=== PATIENT | female | born 1945 | race Two or more races ===

== ENCOUNTER 2022-05-12 09:40 | Inpatient (IN) | payer MEDICARE, OTHER ==
[~2022-05-12] VITALS: Ht 162.6 cm; Wt 68.0 kg
[2022-05-12] MEDS ORDERED: ACETAMINOPHEN 325 MG TABLET PO PRN (10:00)
[2022-05-12] MEDS ORDERED: MAGNESIUM HYDROXIDE 30 ML LIQUID UDC PO PRN (10:00)
[2022-05-12] MEDS ORDERED: MAG HYDROX/AL HYDROX/SIMETH 30 ML LIQUID UDC PO PRN (10:00)
[2022-05-12] MEDS ORDERED: BLOOD SUGAR DIAGNOSTIC 1 EACH STRIP VI ONE (10:30)
--- NOTE | 2022-05-12 10:51 | NUR ---
Admitted a case of 76 years old female from [facility] with history of Psychosis. Patient is on 5150 status. Patient arrived in a stretcher accompanied by EMT from [facility]. Initial report was given by Ila OTOOLE from interior design teacher. On admission patient was cooperative to physical assessment and vital signs. Skin body revealed no significant skin integrity breakdown. Upon face to face, patient appeared alert, oriented to person and place, confused, cooperative. Patient denies any suicidal or homicidal ideations nor any hallucinations or delusions. Patient refused to sign and consent to all admission documents. Patient was offered brief orientation to unit rules and policies and given copy of patient's rights handbook. Patient belongings were accounted and contrabands removed. Psychiatrist Keke and Medical physician Jens Huerta were informed and orders were carried out. Patient is free from pain or any discomfort. Emotional support provided. Fall and safety precautions implemented.
[2022-05-12] MEDS ORDERED: DEXTROSE 50% 50 ML DISP.SYRIN IV PRN (11:00)
[2022-05-12 11:32] VITALS: BP 142/74
[2022-05-12] MEDS: BLOOD SUGAR DIAGNOSTIC 1 EACH STRIP VI SCH ×3 (11:56→20:45)
[2022-05-12] MEDS: DIVALPROEX SPRINKLE 125 MG CAP.SPRINK PO SCH ×3 (12:15→20:45)
[2022-05-12] MEDS: OLANZAPINE 5 MG TABLET PO SCH (12:15)
[2022-05-12 15:21] VITALS: BP 92/51
--- NOTE | 2022-05-12 15:29 | NUR ---
Patient is A/O X 1 to person. Pt. is restless, agitated, anxious, combative, confused, disoriented, disorganized. Pt. tries to hit and kick staff. Pt. curses and yells and is uncooperative with nursing care. Reassurance given. Fall and safety precautions implemented.
[2022-05-12] MEDS ORDERED: LINA5TAB PO (15:45)
[2022-05-12] MEDS ORDERED: DIVA125C2 PO (15:45)
[2022-05-12] MEDS ORDERED: ATOR40TA PO (15:45)
[2022-05-12] MEDS ORDERED: INSU100V28 SQ (15:45)
[2022-05-12] MEDS ORDERED: MAG-55 PO (15:45)
[2022-05-12] MEDS ORDERED: HYDR12.55 PO (15:45)
[2022-05-12] MEDS ORDERED: GLIP5TAB13 PO (15:45)
[2022-05-12] MEDS ORDERED: LISI10TA29 PO (15:45)
[2022-05-12] MEDS ORDERED: GLIM4TAB37 PO (15:45)
[2022-05-12] MEDS ORDERED: OLAN5TAB70 PO (15:45)
[2022-05-12] MEDS ORDERED: ACET-2154 PO (15:47)
[2022-05-12] MEDS ORDERED: ACET-73 PO (15:47)
[2022-05-12] MEDS: INSULIN REGULAR, HUMAN 300 UNIT/3 ML VIAL SQ PRN (16:54)
--- NOTE | 2022-05-12 16:57 | NUR ---
Patient blood glucose is 257, 6 units of regular insulin given per sliding scale.
[2022-05-12] MEDS ORDERED: ACETAMINOPHEN 325 MG TABLET-SA PATIENTS-PAIN ONLY PO PRN (18:00)
[2022-05-12] MEDS ORDERED: ACETAMINOPHEN ES 500 MG TABLET PO PRN (18:00)
[2022-05-12 20:20] VITALS: BP 106/54
[2022-05-12] MEDS: ATORVASTATIN 40 MG TABLET PO SCH (20:45)
--- NOTE | 2022-05-13 04:49 | NUR ---
GPS: Pt.remains asleep during rounds. Got up x1 earlier and was assisted to the bathroom to urinate. Pt.is confused,disoriented and disorganized. Uncooperative, refused bedtime meds/accucheck despite numerous attempts by staff.Poor insight to her present situation/mental illness. Re-directed prn. Fall precautions observed.
[2022-05-13] MEDS: BLOOD SUGAR DIAGNOSTIC 1 EACH STRIP VI SCH ×4 (06:36→20:25)
[2022-05-13 07:11] LABS: HEMATOCRIT 36.8 % (31.2-41.9); MEAN CORPUSCULAR HEMOGLOBIN 28.7 uug (24.7-32.8); MEAN CORPUSCULAR VOLUME 85.1 fL (75.5-95.3); PLATELET COUNT (AUTO) 256 K/uL (179-408)
[2022-05-13 07:18] LABS: CREATININE 1.1 mg/dL (0.6-1.3); POTASSIUM 4.9 mmol/L (3.5-5.1)
[2022-05-13 08:02] VITALS: BP 105/53
[2022-05-13] MEDS: LINAGLIPTIN 5 MG TABLET PO SCH (09:00)
[2022-05-13] MEDS: DIVALPROEX SPRINKLE 125 MG CAP.SPRINK PO SCH ×3 (09:00→18:15)
[2022-05-13] MEDS: GLIMEPIRIDE 4 MG TABLET PO SCH (09:00)
[2022-05-13] MEDS: OLANZAPINE 5 MG TABLET PO SCH (09:00)
[2022-05-13] MEDS: LISINOPRIL 10 MG TABLET PO SCH (09:00)
[2022-05-13] MEDS: HYDROCHLOROTHIAZIDE 12.5 MG CAPSULE PO SCH (09:00)
[2022-05-13] MEDS: glipiZIDE 5 MG TABLET PO SCH ×2 (09:00→18:16)
[2022-05-13] MEDS: INSULIN REGULAR, HUMAN 300 UNIT/3 ML VIAL SQ PRN ×3 (09:52→20:26)
--- NOTE | 2022-05-13 09:53 | NUR ---
Patient blood glucose is 248, patient refused 4 units of regular insulin per sliding scale.
--- NOTE | 2022-05-13 13:00 | NUR ---
Received a patient sleeping in her room. A/O X 1 to person. Pt. is confused, disoriented, forgetful, agitated at times, combative with nursing care. Refuses medications. Pt. requires more than minimal assistance with ADL. Ambulates with assistance. Fall and safety precautions implemented.
[2022-05-13 16:00] VITALS: BP 109/59
--- NOTE | 2022-05-13 19:04 | NUR ---
GPS: PT ON CHAIR FOR SAFETY PT EASILY GETS IRRITATED AND COMBATIVE. PT QUIET TODAY. ABLE TO TAKE MEDS AND COOPERATIVE WITH CARE. BLOOD SUGAR AT 210, GIVEN 4 UNITS HUMALIN R AND TOLERATED WELL.
[2022-05-13] MEDS: ATORVASTATIN 40 MG TABLET PO SCH (20:19)
[2022-05-13] MEDS: TEMAZEPAM 7.5 MG CAPSULE PO PRN (21:06)
--- NOTE | 2022-05-13 23:49 | NUR ---
GPS: Pt.asleep during rounds. Assisted to the toilet earlier for elimination purposes. Still with episodes of being resistant/uncooperative during care. Confused,disoriented,and disorganized. Poor insight to present situation. Took bedtime meds.with little persuasion from staff. Fall precautions observed. Re-directed prn.
[2022-05-14] MEDS: BLOOD SUGAR DIAGNOSTIC 1 EACH STRIP VI SCH ×4 (06:31→20:23)
[2022-05-14 07:30] VITALS: BP 127/73
[2022-05-14] MEDS: GLIMEPIRIDE 4 MG TABLET PO SCH (09:40)
[2022-05-14] MEDS: HYDROCHLOROTHIAZIDE 12.5 MG CAPSULE PO SCH (09:40)
[2022-05-14] MEDS: LINAGLIPTIN 5 MG TABLET PO SCH (09:40)
[2022-05-14] MEDS: DIVALPROEX SPRINKLE 125 MG CAP.SPRINK PO SCH ×3 (09:40→17:16)
[2022-05-14] MEDS: LISINOPRIL 10 MG TABLET PO SCH (09:41)
[2022-05-14] MEDS: OLANZAPINE 5 MG TABLET PO SCH (09:41)
[2022-05-14] MEDS: glipiZIDE 5 MG TABLET PO SCH ×2 (09:46→17:16)
[2022-05-14] MEDS: GLUCERNA SHAKE 237 ML CAN PO SCH (10:00)
--- NOTE | 2022-05-14 10:38 | NUR ---
GPS: FILED AND FAXED 14 DAY HOLD [facility] TODAY FOR GRAVE DISABILITY AND RECEIVED BY COURT. PT GIVEN A COPY.
[2022-05-14] MEDS: INSULIN REGULAR, HUMAN 300 UNIT/3 ML VIAL SQ PRN ×3 (12:06→20:26)
[2022-05-14 15:22] VITALS: BP 106/49
--- NOTE | 2022-05-14 18:34 | NUR ---
Received a patient sleeping in her room. A/O X 1 to person. Pt. is combative with nursing care, loud, agitated. Compliant with medications. Ambulates with assistance. Reassurance given. Fall and safety precautions implemented. Blood glucose is 266 at dinner, 6 units of regular insulin given per sliding scale.
[2022-05-14 20:12] VITALS: BP 129/54
[2022-05-14] MEDS: ATORVASTATIN 40 MG TABLET PO SCH (20:26)
[2022-05-14] MEDS: TEMAZEPAM 7.5 MG CAPSULE PO PRN (21:27)
[2022-05-14] MEDS: LORAZEPAM 0.5 MG TABLET PO PRN (22:31)
[2022-05-15] MEDS: BLOOD SUGAR DIAGNOSTIC 1 EACH STRIP VI SCH ×4 (06:41→20:28)
[2022-05-15 07:30] VITALS: BP 102/46
[2022-05-15] MEDS: GLIMEPIRIDE 4 MG TABLET PO SCH (08:30)
[2022-05-15] MEDS: glipiZIDE 5 MG TABLET PO SCH ×2 (08:31→17:00)
[2022-05-15] MEDS: HYDROCHLOROTHIAZIDE 12.5 MG CAPSULE PO SCH (08:31)
[2022-05-15] MEDS: LINAGLIPTIN 5 MG TABLET PO SCH (08:31)
[2022-05-15] MEDS: OLANZAPINE 5 MG TABLET PO SCH (08:31)
[2022-05-15] MEDS: DIVALPROEX SPRINKLE 125 MG CAP.SPRINK PO SCH ×3 (08:31→17:00)
[2022-05-15] MEDS: LISINOPRIL 10 MG TABLET PO SCH (08:32)
[2022-05-15] MEDS: GLUCERNA SHAKE 237 ML CAN PO SCH (08:33)
--- NOTE | 2022-05-15 10:02 | NUR ---
VINICIUS Initial Discharge Note: Pt currently resides at [facility] located at [address] [place] [address] ([phone]). Pt has a son, Mart ([phone]). It is uncertain at this time if pt can safely return to [facility]. VINICIUS will continue to work with pt, family and MD to ensure a safe and proper discharge plan.
[2022-05-15] MEDS: INSULIN REGULAR, HUMAN 300 UNIT/3 ML VIAL SQ PRN ×2 (10:24→18:22)
--- NOTE | 2022-05-15 11:18 | NUR ---
Firearms Report: Accountant Property completed and submitted a DOJ firearms report for 5150 a danger to others and grave disability certifications. A copy of report has been placed in patient chart.
[2022-05-15] MEDS ORDERED: DEXTROSE 50% 50 ML DISP.SYRIN IV PRN (12:45)
--- NOTE | 2022-05-15 13:00 | NUR ---
TEXT DR. KEANE FOR MRI APPROVAL.
[2022-05-15 13:07] LABS: HEMATOCRIT 35.8 % (31.2-41.9); MEAN CORPUSCULAR VOLUME 86.4 fL (75.5-95.3); PLATELET COUNT (AUTO) 250 K/uL (179-408)
--- NOTE | 2022-05-15 13:10 | NUR ---
Patient refuses Depakote 250 mg as scheduled.
[2022-05-15 13:20] LABS: ALANINE AMINOTRANSFERASE 11 U/L (14-59); ALKALINE PHOSPHATASE 130 U/L (50-136); ASPARTATE AMINOTRANSFERASE 9 U/L (15-37); BILIRUBIN,TOTAL 0.6 mg/dL (0.2-1.0); CARBON DIOXIDE 28 mmol/L (21-32); CHLORIDE 103 mmol/L (98-107); CREATININE 1.6 mg/dL (0.6-1.3); PHOSPHOROUS 4.3 mg/dL (2.5-4.9); POTASSIUM 4.6 mmol/L (3.5-5.1); TOTAL PROTEIN, SERUM 7.9 g/dL (6.4-8.2); UREA NITROGEN, BLOOD 58 mg/dL (7-18)
[2022-05-15 13:23] LABS: GLUCOSE 365 mg/dL (74-106)
[2022-05-15] MEDS ORDERED: IV NS 1000 ML 1,000 ML IV ONE (14:00)
[2022-05-15] MEDS: LORAZEPAM 0.5 MG TABLET PO PRN (15:14)
--- NOTE | 2022-05-15 15:15 | NUR ---
Patient is given Ativan 0.5 mg for agitation and combativeness, will be monitor for effectiveness.
--- NOTE | 2022-05-15 15:30 | NUR ---
Patient is given IV NS 1000 ml bolus as scheduled, patient will be monitored 1:1 by nurses in the nursing station, following clinical nursing director orders.
[2022-05-15 16:00] VITALS: BP 100/38
--- NOTE | 2022-05-15 16:40 | NUR ---
I was asked to call [facility] and got report from Yun THOMPSON about this patient. The nurse informed that patient had been there for 3 months and could recognize nurses there, always making inappropriate comments, cursing, and with very strong personality. Patient was alert, oriented X 2 to person. She also stated that patient's son Mart Lopez never visited her in the facility during these 3 months, and patient did not have visitors over. Report was also taken from Activity employee Amna as well. Addendum: 05/15/22 at 1648 by MARIYA SALAS RN Facility was called at 16:40.
[2022-05-15] MEDS ORDERED: OLANZAPINE 5 MG TABLET PO SCH (17:00)
--- NOTE | 2022-05-15 18:24 | NUR ---
Patient blood glucose is 267, 12 units was given per sliding scale.
--- NOTE | 2022-05-15 18:51 | NUR ---
Patient is uncooperative with care, anxious, agitated, combative. Pt. keeps trying pulling her IV out and is getting more confused. Requires total assistance with ADL. Reassurance given. Fall and safety precautions implemented.
[2022-05-15 20:12] VITALS: BP 114/56
[2022-05-15] MEDS: ATORVASTATIN 40 MG TABLET PO SCH (20:21)
[2022-05-15] MEDS: INSULIN REGULAR, HUMAN 300 UNITS/3 ML VIAL SQ PRN (20:30)
[2022-05-15 23:39] LABS: *BILIRUBIN,URIN NEGATIVE (NEGATIVE); *KETONES,URINE NEGATIVE (NEGATIVE); *UROBILINOGEN,URINE 0.2 E.U./dl (NORMAL); LEUKOCYTE ESTERASE ,URINE 3+ (NEGATIVE); NITRITE, URINE NEGATIVE (NEGATIVE); PH,URINE >=9.0 (5.0-8.0); UGLUCOSE 1+ (NEGATIVE)
[2022-05-15 23:46] LABS: *BLOOD, URINE TRACE (NEGATIVE); *CLARITY,URINE CLOUDY (CLEAR); *COLOR,URINE STRAW (YELLOW)
[2022-05-15 23:47] LABS: BACTERIA,URINE MANY /HPF (NONE SEEN); SQUAMOUS EPITHELIAL CELL,UR FEW /HPF (NONE SEEN); WBC,URINE TNTC /HPF (0-3)
[2022-05-16] MEDS: BLOOD SUGAR DIAGNOSTIC 1 EACH STRIP VI SCH ×4 (06:35→20:10)
[2022-05-16 07:09] LABS: CREATININE 1.2 mg/dL (0.6-1.3); MAGNESIUM 1.9 mg/dL (1.8-2.4); PHOSPHOROUS 3.6 mg/dL (2.5-4.9); POTASSIUM 4.5 mmol/L (3.5-5.1)
[2022-05-16 07:30] VITALS: BP 108/60
[2022-05-16 07:32] LABS: MEAN CORPUSCULAR HEMOGLOBIN 29.3 uug (24.7-32.8); MEAN CORPUSCULAR VOLUME 85.7 fL (75.5-95.3); PLATELET COUNT (AUTO) 220 K/uL (179-408)
[2022-05-16] MEDS: LISINOPRIL 10 MG TABLET PO SCH (09:00)
[2022-05-16] MEDS: GLUCERNA SHAKE 237 ML CAN PO SCH (09:00)
[2022-05-16] MEDS ORDERED: GLIMEPIRIDE 4 MG TABLET PO SCH (09:00)
--- NOTE | 2022-05-16 10:34 | NUR ---
GPS: UTI NOTED ON PT LAB RESULT. CROWD CONTROLLER ORDERED KEFLEX 500MG Q8HRS X 5 DAYS FOR UTI.
[2022-05-16] MEDS: HYDROCHLOROTHIAZIDE 12.5 MG CAPSULE PO SCH (11:09)
[2022-05-16] MEDS: LINAGLIPTIN 5 MG TABLET PO SCH (11:09)
[2022-05-16] MEDS: glipiZIDE 5 MG TABLET PO SCH ×2 (11:09→17:13)
[2022-05-16] MEDS: DIVALPROEX SPRINKLE 125 MG CAP.SPRINK PO SCH ×3 (11:09→17:13)
[2022-05-16] MEDS: risperiDONE 0.5 MG TABLET PO SCH ×2 (11:16→20:10)
[2022-05-16] MEDS: INSULIN REGULAR, HUMAN 300 UNIT/3 ML VIAL SQ PRN ×2 (12:32→17:06)
[2022-05-16] MEDS: CEphaleXIN 500 MG CAPSULE PO SCH ×2 (13:26→21:13)
--- NOTE | 2022-05-16 13:45 | NUR ---
Gps/Account Executive Key Accounts- Compliant with routine medications, took her routine meds with no difficulty noted. Fed self ind. after set up.
--- NOTE | 2022-05-16 16:28 | NUR ---
APS: SW filed an APS report #[id number] on pt's son, Dennis ([phone]) due to pt presenting verbally aggressive and threatening via phone to this SW. Dennis stated he is admitting that he needs the SW to talk to the psychiatrist and write the letter today so he can present the letter to the bank and gain access to the patient's debit card to help pay for his rent. Dennis stated in an upset and hyperverbal tone that he needs the letter today or else he is going to be evicted at the end of the month and he has a daughter. Pt's son continued to repeat the same statement. Dennis appeared to deny the pt's current condition by asking what her diagnosis means and stating her symptoms began here after receiving medication. Dennis was apologetic, however continued to demand the letter and stated he is going to come see the pt today. This SW informed the pt's psychiatrist, Dr. Davies of the conversation and the Director, Dr. Hidalgo. Dr. Davies and Dr. Hidalgo are aware of the APS report. A copy has been placed in the patient's chart.
--- NOTE | 2022-05-16 16:29 | NUR ---
SW Family Contact: SW filed an APS report #[id number] on pt's son, Dennis ([phone]) due to pt presenting verbally aggressive and threatening via phone to this SW. Dennis stated he is admitting that he needs the SW to talk to the psychiatrist and write the letter today so he can present the letter to the bank and gain access to the patient's debit card to help pay for his rent. Dennis stated in an upset and hyperverbal tone that he needs the letter today or else he is going to be evicted at the end of the month and he has a daughter. Pt's son continued to repeat the same statement. Dennis appeared to deny the pt's current condition by asking what her diagnosis means and stating her symptoms began here after receiving medication. Dennis was apologetic, however continued to demand the letter and stated he is going to come see the pt today. This SW informed the pt's psychiatrist, Dr. Davies of the conversation and the Director, Dr. Hidalgo. Dr. Davies and Dr. Hidalgo are aware of the APS report. A copy has been placed in the patient's chart.
--- NOTE | 2022-05-16 16:36 | NUR ---
GPS: RECEIVED A CALL FROM PSYCHIATRIST RE: SON COMING TO VISIT HIS MOM AT [phone], THE PT. PER PSYCHIATRIST, TO REQUEST SECURITY PERSONNEL INSIDE THE UNIT FOR STAND BY. INFORMED (SOILA) SECURITY AT THE [facility] AND PER SECURITY, HIS BOSS IS COMING OVER TODAY.
[2022-05-16 17:18] VITALS: BP 110/70
--- NOTE | 2022-05-16 17:58 | NUR ---
GPS: SON CAME TO VISIT PT ACCOMPANIED BY SECURITY PERSONNEL. SON ASKED CASING WRINGER OPERATOR IF HE CAN MAKE A CALL TO THE BANK AND PT SPEAK TO THE STEAMSHIP AGENT TO AUTHORIZE HIM TO USE FUNDS. CASING WRINGER OPERATOR STATED THAT HE CANNOT MAKE A CALL OR TRANSACTION INSIDE THE UNIT AND WE ARE NOT AUTHORIZE TO DO THAT HERE. SON APOLOGIZED TO WHAT HAPPENED HERE YESTERDAY DURING HIS VISIT. PSYCHIATRIST AND MRI SUPERVISOR MADE AWARE.
--- NOTE | 2022-05-16 18:28 | NUR ---
Gps/Ocean Lifeguard- Son was in to visit patient. Interacting with patient in Bangladeshi .Per son patient was able to identify patient. Patient stayed up in her chair by the Nurses station while son was visiting.
[2022-05-16] MEDS: ATORVASTATIN 40 MG TABLET PO SCH (20:10)
[2022-05-16 21:08] VITALS: BP 99/48
[2022-05-16] MEDS: INSULIN REGULAR, HUMAN 300 UNITS/3 ML VIAL SQ PRN (21:12)
--- NOTE | 2022-05-16 21:13 | NUR ---
GPS: Pt.is angry,gets easily agitated,verbally abusive now when being encouraged to take her meds.and insulin. Pt.is confused,disoriented and disorganized. Constant re-direction provided but unsuccessful so far. Resistant during care also. Fall precautions observed. Will continue to monitor. Fluids encouraged but taken poorly.
[2022-05-17] MEDS: CEphaleXIN 500 MG CAPSULE PO SCH ×3 (06:00→22:06)
[2022-05-17] MEDS: BLOOD SUGAR DIAGNOSTIC 1 EACH STRIP VI SCH ×4 (06:33→20:26)
--- NOTE | 2022-05-17 06:50 | NUR ---
GPS: Pt.slept 6.15 last night. Remains confused,disoriented and easily agitated when care is being rendered. Refused atb am dose for UTI despite explanation of importance. Urine remains cloudy. Fall precautions observed.Po fluids encouraged but taken poorly. Afebrile.
[2022-05-17 07:30] VITALS: BP 112/56
--- NOTE | 2022-05-17 08:30 | NUR ---
Gps/Intellectual Property Lawyer. AntonOB to her chair for breakfast, was toileted, contienence noted, set up with her meals, compliant with routine oral meds, took meds w/o hesitancy when reviewed, but refused insulin injection , will recheck blood glucose at a later time
[2022-05-17] MEDS: LINAGLIPTIN 5 MG TABLET PO SCH (09:03)
[2022-05-17] MEDS: LISINOPRIL 10 MG TABLET PO SCH (09:03)
[2022-05-17] MEDS: glipiZIDE 5 MG TABLET PO SCH ×2 (09:04→18:05)
[2022-05-17] MEDS: risperiDONE 0.5 MG TABLET PO SCH ×3 (09:04→22:06)
[2022-05-17] MEDS: DIVALPROEX SPRINKLE 125 MG CAP.SPRINK PO SCH ×3 (09:04→18:05)
[2022-05-17] MEDS: GLUCERNA SHAKE 237 ML CAN PO SCH (09:05)
[2022-05-17] MEDS: HYDROCHLOROTHIAZIDE 12.5 MG CAPSULE PO SCH (09:07)
--- NOTE | 2022-05-17 09:27 | NUR ---
VINICIUS Discharge Update: VINICIUS spoke with Sachi at [facility] located at [address] [place], [place] [id number] ([phone]) who stated that pt is welcome back upon discharge.
[2022-05-17] MEDS: INSULIN REGULAR, HUMAN 300 UNIT/3 ML VIAL SQ PRN ×3 (11:11→17:48)
--- NOTE | 2022-05-17 12:26 | NUR ---
GPS: 14 DAY HOLD [facility] DONE. PT WILL CONTINUE ON HOLD FOR PROBABLE CAUSE OF GD. PT DID NOT ATTEND THE HEARING.
--- NOTE | 2022-05-17 13:12 | NUR ---
Gps/Heel Cementer Machine- Continued compliance with her routine medications noted when offered, reviewed with patient , agreed to take her medications . Staying up in her aby-chair , periods of short naps noted.. Calling out to make simple needs, known, was toileted as needed.
[2022-05-17 16:00] VITALS: BP 113/48
[2022-05-17] MEDS: ATORVASTATIN 40 MG TABLET PO SCH ×2 (20:27→22:06)
[2022-05-17 20:28] VITALS: BP 109/47
[2022-05-17] MEDS: INSULIN REGULAR, HUMAN 300 UNITS/3 ML VIAL SQ PRN (20:28)
--- NOTE | 2022-05-17 22:07 | NUR ---
GPS: Attempted again to offer PO meds.at bedtime and pt.finally took them with little persuasion from staff. Continues to refuse reg.insulin per sliding scale bedtime dose.
[2022-05-18] MEDS: CEphaleXIN 500 MG CAPSULE PO SCH ×3 (06:34→22:00)
[2022-05-18] MEDS: BLOOD SUGAR DIAGNOSTIC 1 EACH STRIP VI SCH ×4 (06:35→20:48)
--- NOTE | 2022-05-18 06:35 | NUR ---
GPS: Pt.compliant with her med.at this time. Blood sugar check done and registered at 145mg/dl. Walked to the bathroom with help of staff for elimination purposes. Less agitated at the moment. Re-directed prn. Reality re-orientation provided prn. Fall precautions observed.
[2022-05-18 07:30] VITALS: BP 112/58
[2022-05-18] MEDS: risperiDONE 0.5 MG TABLET PO SCH ×2 (09:18→20:42)
[2022-05-18] MEDS: glipiZIDE 5 MG TABLET PO SCH ×2 (09:18→17:55)
[2022-05-18] MEDS: LINAGLIPTIN 5 MG TABLET PO SCH (09:18)
[2022-05-18] MEDS: HYDROCHLOROTHIAZIDE 12.5 MG CAPSULE PO SCH (09:18)
[2022-05-18] MEDS: LISINOPRIL 10 MG TABLET PO SCH (09:19)
[2022-05-18] MEDS: DIVALPROEX SPRINKLE 125 MG CAP.SPRINK PO SCH ×3 (09:20→17:55)
[2022-05-18] MEDS: GLUCERNA SHAKE 237 ML CAN PO SCH (09:21)
[2022-05-18] MEDS: INSULIN REGULAR, HUMAN 300 UNIT/3 ML VIAL SQ PRN ×2 (12:06→17:42)
--- NOTE | 2022-05-18 12:57 | NUR ---
Gps/Thermal Engineer- Stayed up in her aby- chair during her lunch, ate fairly well, fed self ind. after set up. deneis any pain no discomfort noted.
[2022-05-18 16:00] VITALS: BP 102/43
--- NOTE | 2022-05-18 18:11 | NUR ---
Gps/Maintenance Mgr- Patient stayed up for dinner, Son Jens came in to visit , patient was able to identify her son, brought in black tennis shoes -1 pair, , 2 long sleeves printed blouse 1 beige blouse 3 pairs of sock , rest of her clothes was sent home, returned back to her son .
[2022-05-18 20:00] VITALS: BP 107/42
[2022-05-18] MEDS: ATORVASTATIN 40 MG TABLET PO SCH (20:42)
[2022-05-18] MEDS: INSULIN REGULAR, HUMAN 300 UNITS/3 ML VIAL SQ PRN (20:50)
[2022-05-19] MEDS: CEphaleXIN 500 MG CAPSULE PO SCH ×3 (05:50→20:46)
--- NOTE | 2022-05-19 05:59 | NUR ---
GPS: Remain calm and cooperative3 with care. refused atb last night,but compliant this morning. slept 5 hrs through the night. resting in bed comfortably.
[2022-05-19] MEDS: BLOOD SUGAR DIAGNOSTIC 1 EACH STRIP VI SCH ×5 (06:13→20:39)
[2022-05-19 08:12] VITALS: BP 118/61
[2022-05-19] MEDS: INSULIN REGULAR, HUMAN 300 UNIT/3 ML VIAL SQ PRN ×3 (08:14→16:49)
[2022-05-19] MEDS: LINAGLIPTIN 5 MG TABLET PO SCH (09:29)
[2022-05-19] MEDS: risperiDONE 0.5 MG TABLET PO SCH ×2 (09:29→20:41)
[2022-05-19] MEDS: DIVALPROEX SPRINKLE 125 MG CAP.SPRINK PO SCH ×3 (09:29→16:30)
[2022-05-19] MEDS: GLUCERNA SHAKE 237 ML CAN PO SCH (09:30)
[2022-05-19] MEDS: glipiZIDE 5 MG TABLET PO SCH ×2 (09:30→16:30)
[2022-05-19] MEDS: LISINOPRIL 10 MG TABLET PO SCH (09:30)
[2022-05-19] MEDS: HYDROCHLOROTHIAZIDE 12.5 MG CAPSULE PO SCH (09:31)
[2022-05-19 16:20] VITALS: BP 111/51
[2022-05-19] MEDS: NUTRISOURCE FIBER 4 GM PACKET PO SCH (16:31)
--- NOTE | 2022-05-19 18:26 | NUR ---
GPS NOTES; Received patient in her room sleeping, no distress noted. Responsive to name and touch. A&0x1. Compliant with medications. Patient in aby chair, close to nursing station for safety. Needs med and attended. With good appetite. Needs assistance to perform ADL's. closely monitoring observed.
[2022-05-19 20:06] VITALS: BP 117/63
[2022-05-19] MEDS: ATORVASTATIN 40 MG TABLET PO SCH (20:41)
[2022-05-19] MEDS: INSULIN REGULAR, HUMAN 300 UNITS/3 ML VIAL SQ PRN (20:49)
[2022-05-20] MEDS: BLOOD SUGAR DIAGNOSTIC 1 EACH STRIP VI SCH ×4 (06:21→20:53)
[2022-05-20] MEDS: CEphaleXIN 500 MG CAPSULE PO SCH ×3 (06:46→21:16)
--- NOTE | 2022-05-20 06:47 | NUR ---
Patient awake but forgetful patient has episode of non compliant with medications, and resistive with care at time, cont to reorient patient, kept clean and dry, assist with toileting cont to monitor.
[2022-05-20] MEDS: HYDROCHLOROTHIAZIDE 12.5 MG CAPSULE PO SCH (09:00)
[2022-05-20] MEDS: LINAGLIPTIN 5 MG TABLET PO SCH (09:00)
--- NOTE | 2022-05-20 09:21 | NUR ---
SW Family Contact: SW was unable to be connected to pt's son, Dennis ([phone]) and unable to leave a voicemail.
[2022-05-20] MEDS: DIVALPROEX SPRINKLE 125 MG CAP.SPRINK PO SCH ×3 (09:43→17:14)
[2022-05-20] MEDS: glipiZIDE 5 MG TABLET PO SCH ×2 (09:43→17:14)
[2022-05-20] MEDS: LISINOPRIL 10 MG TABLET PO SCH (09:44)
[2022-05-20] MEDS: risperiDONE 0.5 MG TABLET PO SCH ×2 (09:44→20:53)
[2022-05-20] MEDS: GLUCERNA SHAKE 237 ML CAN PO SCH (09:46)
[2022-05-20] MEDS: NUTRISOURCE FIBER 4 GM PACKET PO SCH ×2 (09:47→17:14)
[2022-05-20 10:12] VITALS: BP 102/51
[2022-05-20] MEDS: INSULIN REGULAR, HUMAN 300 UNIT/3 ML VIAL SQ PRN ×2 (12:34→17:12)
[2022-05-20 16:48] VITALS: BP 110/52
[2022-05-20 20:04] VITALS: BP 112/56
[2022-05-20] MEDS: ATORVASTATIN 40 MG TABLET PO SCH (20:53)
--- NOTE | 2022-05-20 22:46 | NUR ---
GPS: Pt.asleep during rounds. Breathing easy and unlabored. In no form of distress noted. Refused bedtime meds.and blood sugar check earlier despite numerous attempts by staff. Angry and was easily agitated when approached and when being persuaded to take her meds. Fall precautions observed. Reality re-orientation provided prn. Bed alarm on for safety. No s/s of glycemic reactions noted.
[2022-05-21] MEDS: CEphaleXIN 500 MG CAPSULE PO SCH ×3 (06:00→17:36)
[2022-05-21] MEDS: BLOOD SUGAR DIAGNOSTIC 1 EACH STRIP VI SCH ×4 (06:43→20:04)
--- NOTE | 2022-05-21 06:54 | NUR ---
GPS: Pt.slept 7 hrs.last night. Continues to refuse meds.and accuchecks despite explanation of importance. Gets loud,angry,and irritable when being re-directed and persuaded to. Poor insight to present situation. Fall precautions observed. Will continue to monitor.
[2022-05-21 07:30] VITALS: BP 102/51
[2022-05-21] MEDS: LISINOPRIL 10 MG TABLET PO SCH (09:00)
[2022-05-21] MEDS: glipiZIDE 5 MG TABLET PO SCH ×2 (09:15→17:36)
[2022-05-21] MEDS: HYDROCHLOROTHIAZIDE 12.5 MG CAPSULE PO SCH (09:15)
[2022-05-21] MEDS: risperiDONE 0.5 MG TABLET PO SCH ×2 (09:15→20:03)
[2022-05-21] MEDS: DIVALPROEX SPRINKLE 125 MG CAP.SPRINK PO SCH ×3 (09:15→17:36)
[2022-05-21] MEDS: GLUCERNA SHAKE 237 ML CAN PO SCH (09:15)
[2022-05-21] MEDS: NUTRISOURCE FIBER 4 GM PACKET PO SCH ×2 (09:16→17:39)
[2022-05-21] MEDS: LINAGLIPTIN 5 MG TABLET PO SCH (09:18)
--- NOTE | 2022-05-21 11:00 | NUR ---
GPS: PT RECEIVED TODAY ON CHAIR FOR SAFETY. PT ATTENDED THE GROUP THERAPY TODAY. ATE BY HERSELF, COMPLIANT WITH MEDS AND CARE BUT SOMEWHAT NEED ENCOURAGEMENT MORE WITH TAKING MEDS. PT EASILY GETS IRRITATED WHEN GIVEN DIRECTIONS.
[2022-05-21] MEDS: INSULIN REGULAR, HUMAN 300 UNIT/3 ML VIAL SQ PRN (12:48)
[2022-05-21 15:46] VITALS: BP 107/52
--- NOTE | 2022-05-21 18:21 | NUR ---
GPS: PT COMPLIANT WITH MEDS BUT REFUSED ACCUCHECK AND INSULIN. PT EASILY GETS IRRITABLE. DENIES PAIN. PT HAD A VISITOR TODAY. NO SCREAMING OR YELLING NOTED.
[2022-05-21] MEDS: ATORVASTATIN 40 MG TABLET PO SCH (20:03)
[2022-05-21 20:07] VITALS: BP 130/57
[2022-05-21] MEDS: INSULIN REGULAR, HUMAN 300 UNITS/3 ML VIAL SQ PRN (20:08)
--- NOTE | 2022-05-21 21:19 | NUR ---
GPS: Pt.was less irritable earlier when approached. Took bedtime meds and allowed staff to do accucheck on her and covered her with reg.insulin per sliding scale. Fall precautions observed. Re-directed prn. Will continue to monitor.
[2022-05-22] MEDS: BLOOD SUGAR DIAGNOSTIC 1 EACH STRIP VI SCH ×4 (06:23→20:13)
[2022-05-22 07:30] VITALS: BP 107/48
[2022-05-22] MEDS: LISINOPRIL 10 MG TABLET PO SCH (08:35)
[2022-05-22] MEDS: DIVALPROEX SPRINKLE 125 MG CAP.SPRINK PO SCH ×3 (08:35→18:23)
[2022-05-22] MEDS: LINAGLIPTIN 5 MG TABLET PO SCH (08:35)
[2022-05-22] MEDS: glipiZIDE 5 MG TABLET PO SCH ×2 (08:35→18:23)
[2022-05-22] MEDS: risperiDONE 0.5 MG TABLET PO SCH ×2 (08:35→20:53)
[2022-05-22] MEDS: HYDROCHLOROTHIAZIDE 12.5 MG CAPSULE PO SCH (08:36)
[2022-05-22] MEDS: NUTRISOURCE FIBER 4 GM PACKET PO SCH ×2 (08:40→18:23)
[2022-05-22] MEDS: GLUCERNA SHAKE 237 ML CAN PO SCH (08:40)
[2022-05-22] MEDS: INSULIN REGULAR, HUMAN 300 UNIT/3 ML VIAL SQ PRN ×3 (08:43→18:27)
--- NOTE | 2022-05-22 15:10 | NUR ---
VINICIUS Family Contact: VINICIUS contacted pt's son, Dennis ([phone]) and discussed the discharge update for the pt and the request for the declaration of capacity letter. Per pt's psychiatrist and the Community Relations Representative, the letter can only be written to the entire family only after the current APS case is closed. Dennis was agreeable and understanding.
[2022-05-22 16:00] VITALS: BP 111/50
--- NOTE | 2022-05-22 18:49 | NUR ---
GPS: PT RECEIVED ON CHAIR. PT COMPLIANT WITH CARE AND MEDS. VISITORS CAME, ABLE TO ENCOURAGE PT MORE TO TAKE THE MEDS AND AGREE WITH INSULIN ADMINISTRATION. PER DAUGHTER, SHE SAW A GOOD PROGRESS WITH THE PT BEHAVIOR AND CONDITION. NO EPISODE OF SCREAMING OR STRIKING. PT EASILY GETS IRRITABLE.
[2022-05-22 20:33] VITALS: BP 98/48
[2022-05-22] MEDS: ATORVASTATIN 40 MG TABLET PO SCH (20:53)
[2022-05-22 21:28] VITALS: BP 115/55
[2022-05-23] MEDS: BLOOD SUGAR DIAGNOSTIC 1 EACH STRIP VI SCH ×4 (06:33→20:31)
[2022-05-23 06:51] LABS: HEMATOCRIT 32.6 % (31.2-41.9); MEAN CORPUSCULAR HEMOGLOBIN 29.2 uug (24.7-32.8); MEAN CORPUSCULAR VOLUME 85.3 fL (75.5-95.3); PLATELET COUNT (AUTO) 223 K/uL (179-408)
[2022-05-23 07:04] LABS: BILIRUBIN,TOTAL 0.3 mg/dL (0.2-1.0); CREATININE 1.1 mg/dL (0.6-1.3); POTASSIUM 4.2 mmol/L (3.5-5.1); TOTAL PROTEIN, SERUM 7.4 g/dL (6.4-8.2)
[2022-05-23 07:30] VITALS: BP 112/58
[2022-05-23] MEDS: DIVALPROEX SPRINKLE 125 MG CAP.SPRINK PO SCH ×3 (10:30→18:05)
[2022-05-23] MEDS: LINAGLIPTIN 5 MG TABLET PO SCH (10:30)
[2022-05-23] MEDS: GLUCERNA SHAKE 237 ML CAN PO SCH (10:31)
[2022-05-23] MEDS: glipiZIDE 5 MG TABLET PO SCH ×2 (10:31→18:05)
[2022-05-23] MEDS: HYDROCHLOROTHIAZIDE 12.5 MG CAPSULE PO SCH (10:31)
[2022-05-23] MEDS: LISINOPRIL 10 MG TABLET PO SCH (10:32)
[2022-05-23] MEDS: NUTRISOURCE FIBER 4 GM PACKET PO SCH ×2 (10:32→18:05)
[2022-05-23] MEDS: risperiDONE 0.25 MG TABLET PO SCH ×2 (10:35→20:24)
--- NOTE | 2022-05-23 11:08 | NUR ---
APS Update: APS heater furnace Radha ([phone]) came to evaluate the pt and gathered further information from this advertising writer and nursing. Radha stated she will follow-up with the family and inform this advertising writer of updates.
--- NOTE | 2022-05-23 11:17 | NUR ---
VINICIUS Family Contact: VINICIUS contacted pt's other son, Mart ([phone]) to update him on pt's discharge update on Friday back to [facility]. VINICIUS unable to leave a voicemail due to a full voicemail box.
[2022-05-23] MEDS: INSULIN REGULAR, HUMAN 300 UNIT/3 ML VIAL SQ PRN ×2 (12:51→18:07)
[2022-05-23 15:06] VITALS: BP 108/63
--- NOTE | 2022-05-23 18:33 | NUR ---
GPS: PT RECEIVED THIS MORNING., ALERT AND VERBALLY RESPONSIVE IN [place]. PT EASILY GETS IRRITATED WHEN ASKED TO TAKE MEDS. SOMETIMES HARD TO CONVINCE BUT EVENTUALLY TAKES MEDS. NO SCREAMING NOTED THIS SHIFT. COMPLIANT WITH CARE AND NEEDS. SEEN AMBULATING GOING TO THE BATHROOM. ENCOURAGED AND REMINDED NOT TO FORGET WALKER WHEN AMBULATING.
[2022-05-23] MEDS: ATORVASTATIN 40 MG TABLET PO SCH (20:24)
[2022-05-23] MEDS: INSULIN REGULAR, HUMAN 300 UNITS/3 ML VIAL SQ PRN (20:35)
[2022-05-23] MEDS ORDERED: risperiDONE 0.5 MG TABLET PO SCH (21:00)
[2022-05-23 21:19] VITALS: BP 140/67
[2022-05-23] MEDS: TEMAZEPAM 7.5 MG CAPSULE PO PRN (21:43)
--- NOTE | 2022-05-23 22:27 | NUR ---
Confused and disoriented. AAOx1 Was able to take pm meds earlier. No acute distress noted. Accucheck @ 2100 was 145 with coverage given. No behavioral issues noted. Calm and cooperative.At 2200 patient got OOB and refused to go back to bed. Placed on gerichair for a while. Patient keeps in talking and refused to take sleeping pill. Will encouraged patient to take pill. Will monitor patient.
[2022-05-24] MEDS: BLOOD SUGAR DIAGNOSTIC 1 EACH STRIP VI SCH ×4 (06:32→20:13)
[2022-05-24 07:30] VITALS: BP 99/53
[2022-05-24] MEDS: LISINOPRIL 10 MG TABLET PO SCH (09:00)
[2022-05-24] MEDS: HYDROCHLOROTHIAZIDE 12.5 MG CAPSULE PO SCH (09:00)
[2022-05-24] MEDS: DIVALPROEX SPRINKLE 125 MG CAP.SPRINK PO SCH ×3 (09:31→17:00)
[2022-05-24] MEDS: GLUCERNA SHAKE 237 ML CAN PO SCH (09:32)
[2022-05-24] MEDS: glipiZIDE 5 MG TABLET PO SCH ×2 (09:32→17:00)
[2022-05-24] MEDS: LINAGLIPTIN 5 MG TABLET PO SCH (09:32)
[2022-05-24] MEDS: NUTRISOURCE FIBER 4 GM PACKET PO SCH ×2 (09:34→17:00)
[2022-05-24] MEDS: INSULIN REGULAR, HUMAN 300 UNIT/3 ML VIAL SQ PRN ×2 (09:40→13:26)
--- NOTE | 2022-05-24 15:58 | NUR ---
Received patient sleeping in her room. A/O X 2 to person. Pt. is argumentative, confused, forgetful, suspicious with medications "My doctor told me I don't have to take more medications" "What is it? My mind doesn't need medications" Blood glucose is 204, 8 units of regular insulin given per sliding scale. Reassurance given. Fall and safety precautions implemented.
[2022-05-24 16:30] VITALS: BP 109/47
[2022-05-24 19:55] VITALS: BP 96/49
[2022-05-24] MEDS: ATORVASTATIN 40 MG TABLET PO SCH (20:15)
[2022-05-24] MEDS: risperiDONE 0.25 MG TABLET PO SCH (20:16)
[2022-05-24] MEDS: TEMAZEPAM 7.5 MG CAPSULE PO PRN (21:53)
[2022-05-25] MEDS: BLOOD SUGAR DIAGNOSTIC 1 EACH STRIP VI SCH ×4 (05:54→20:24)
[2022-05-25 07:03] VITALS: BP 101/52
[2022-05-25] MEDS: LISINOPRIL 10 MG TABLET PO SCH (09:00)
[2022-05-25] MEDS: HYDROCHLOROTHIAZIDE 12.5 MG CAPSULE PO SCH (09:00)
[2022-05-25] MEDS: DIVALPROEX SPRINKLE 125 MG CAP.SPRINK PO SCH ×3 (09:00→17:29)
[2022-05-25] MEDS: LINAGLIPTIN 5 MG TABLET PO SCH (09:00)
[2022-05-25] MEDS: glipiZIDE 5 MG TABLET PO SCH ×2 (09:00→17:29)
[2022-05-25] MEDS: GLUCERNA SHAKE 237 ML CAN PO SCH (09:41)
[2022-05-25] MEDS: NUTRISOURCE FIBER 4 GM PACKET PO SCH ×2 (09:42→17:30)
[2022-05-25] MEDS: INSULIN REGULAR, HUMAN 300 UNIT/3 ML VIAL SQ PRN ×4 (09:46→20:39)
--- NOTE | 2022-05-25 16:13 | NUR ---
Received patient sleeping in her room. A/O X 2 to person. Pt. is confused, forgetful, suspicious with medications "Why are trying to drug me?" "Again with those pills? I don't think my doctor agrees with that!" Blood glucose is 209, 8 units of regular insulin given per sliding scale. Emotional support provided. Fall and safety precautions implemented.
[2022-05-25 17:00] VITALS: BP 115/75
[2022-05-25 20:27] VITALS: BP 133/60
[2022-05-25] MEDS: risperiDONE 0.25 MG TABLET PO SCH (20:38)
[2022-05-25] MEDS: ATORVASTATIN 40 MG TABLET PO SCH (20:38)
[2022-05-26] MEDS: BLOOD SUGAR DIAGNOSTIC 1 EACH STRIP VI SCH ×5 (06:32→21:16)
[2022-05-26 07:46] VITALS: BP 126/57
[2022-05-26] MEDS: glipiZIDE 5 MG TABLET PO SCH ×2 (09:12→16:45)
[2022-05-26] MEDS: DIVALPROEX SPRINKLE 125 MG CAP.SPRINK PO SCH ×3 (09:12→16:45)
[2022-05-26] MEDS: LINAGLIPTIN 5 MG TABLET PO SCH (09:13)
[2022-05-26] MEDS: HYDROCHLOROTHIAZIDE 12.5 MG CAPSULE PO SCH (09:13)
[2022-05-26] MEDS: LISINOPRIL 10 MG TABLET PO SCH (09:13)
[2022-05-26] MEDS: GLUCERNA SHAKE 237 ML CAN PO SCH (09:14)
[2022-05-26] MEDS: NUTRISOURCE FIBER 4 GM PACKET PO SCH ×2 (09:14→17:42)
[2022-05-26] MEDS: INSULIN REGULAR, HUMAN 300 UNIT/3 ML VIAL SQ PRN ×3 (09:45→20:38)
[2022-05-26 15:30] VITALS: BP 92/45
--- NOTE | 2022-05-26 15:53 | NUR ---
Received patient sleeping in her room. A/O X 2 to person. Pt. is pleasant, confused, forgetful. Patient states "Here she comes with more pills, never ends" Blood glucose is 238, 8 units of regular insulin given per sliding scale. Covid test done and negative for discharge plans tomorrow. Reassurance given. Fall and safety precautions implemented.
[2022-05-26 19:35] VITALS: BP 116/44
[2022-05-26] MEDS: risperiDONE 0.25 MG TABLET PO SCH (20:29)
[2022-05-26] MEDS: ATORVASTATIN 40 MG TABLET PO SCH (20:29)
[2022-05-26] MEDS: TEMAZEPAM 7.5 MG CAPSULE PO PRN (22:58)
[2022-05-27] MEDS: BLOOD SUGAR DIAGNOSTIC 1 EACH STRIP VI SCH ×2 (06:34→11:26)
[2022-05-27 07:33] VITALS: BP 112/50
[2022-05-27] MEDS: DIVALPROEX SPRINKLE 125 MG CAP.SPRINK PO SCH ×2 (09:31→12:04)
[2022-05-27] MEDS: HYDROCHLOROTHIAZIDE 12.5 MG CAPSULE PO SCH (09:31)
[2022-05-27 09:32] VITALS: BP 112/50
[2022-05-27] MEDS: LISINOPRIL 10 MG TABLET PO SCH (09:32)
[2022-05-27] MEDS: LINAGLIPTIN 5 MG TABLET PO SCH (09:32)
[2022-05-27] MEDS: glipiZIDE 5 MG TABLET PO SCH (09:32)
[2022-05-27] MEDS: GLUCERNA SHAKE 237 ML CAN PO SCH (09:32)
[2022-05-27] MEDS: NUTRISOURCE FIBER 4 GM PACKET PO SCH (09:33)
[2022-05-27] MEDS: INSULIN REGULAR, HUMAN 300 UNIT/3 ML VIAL SQ PRN ×2 (09:46→11:44)
--- NOTE | 2022-05-27 09:56 | NUR ---
VINICIUS Discharge Note: Pt will be discharged to [facility] [address] [place] [address] ([phone]) via Ambulance transportation at 11AM. VINICIUS spoke with admin coordinator, Quin ([phone]) and Sachi ([phone]) at the facility who states they are ready to accept the patient today. Pt is aware and agreeable with discharge plans. Pts son, Dennis ([phone]) is aware and agreeable with the discharge plan. VINICIUS contacted and left a voicemail for pts second son, Mart ([phone]) and left a voicemail regarding the discharge plan. Pt is alert and oriented x1 and is unable to plan for self-care at this time. However, pt is willing to return to [facility] and accept care at SNF. Pt denies any suicidal or homicidal ideation. Pt will follow-up at the facility with Psychiatrist, Dr. Davies ([phone]) and Glue Clamp Operator, Dr. Reyes. Pt presents with calm mood and congruent affect. PHARMACY: [facility]: [phone]) [address], [address], [place] [address].
--- NOTE | 2022-05-27 12:45 | NUR ---
GPS: Nursing Notes: Discharge Notes: Patient is awake and responding to her name, compliant with her medications, following staff directions, argumentative at times, ambulatory, denies SI/HI, denies, AH/VH, denies pain or discomfort, denies SOB, discharge to [facility] [address] [place] [address] , report given to Sabine, RN broadcast field supervisor, Karrie Solis informed patient's son - Dennis of discharge, transported to facility via ambulance, took all her belongings with her. Patient will follow-up at the facility with Psychiatrist, Dr. Davies ([phone]) and Retail Custodial Associate, Dr. Reyes for aftercare.
== END 2022-05-27 12:45 | DRG 885 ==
LOC: GPS 09:40
PROVIDERS: ADMIT Nurse Practitioner Psychiatric/Mental Health; ATTEND Nurse Practitioner Acute Care
DX: F29 Unspecified psychosis not due to a substance or known physiological condition (principal); F01.51 Vascular dementia, unspecified severity, with behavioral disturbance; N17.0 Acute kidney failure with tubular necrosis; E11.65 Type 2 diabetes mellitus with hyperglycemia; G93.41 Metabolic encephalopathy; N39.0 Urinary tract infection, site not specified; F20.0 Paranoid schizophrenia; B96.4 Proteus (mirabilis) (morganii) as the cause of diseases classified elsewhere; Z87.440 Personal history of urinary (tract) infections; Z79.84 Long term (current) use of oral hypoglycemic drugs; I10 Essential (primary) hypertension; Z59.9 Problem related to housing and economic circumstances, unspecified; Z73.6 Limitation of activities due to disability; Z20.822 Contact with and (suspected) exposure to COVID-19; Z79.899 Other long term (current) drug therapy; F41.9 Anxiety disorder, unspecified
CPT/HCPCS: 36415; 70450; 80164; 83735; 84100; 85025; 87077; 87086; 93005; 97161; J1815; J7040